=== PATIENT | male | born 1980 | race American Indian/Alaskan Native ===

== ENCOUNTER 2017-10-12 22:49 | Emergency (ER) | payer MEDICAID ==
[2017-10-12 23:24] VITALS: BP 145/86; PULSE 90; RESP 20; TEMP 98.8; O2SAT 97
[2017-10-12] MEDS ORDERED: cefTRIAXone (Rocephin) 250 mg Inj IM STA (23:59)
--- NOTE | 2017-10-13 00:31 | C.PDOC ---
History Of Present Illness 37 year old male presents to the ER with a complaint of penile discharge and dysuria. Patient states his partner recently told him she tested positive for trichomonas which prompted him to get evaluated. Denies penile lesions or abdominal pain. Time Seen by Provider: 10/12/17 23:29 Chief Complaint (Nursing): Medical Clearance History Per: Patient History/Exam Limitations: no limitations Onset/Duration Of Symptoms: Days Current Symptoms Are (Timing): Still Present Recent travel outside of the [place]: No Past Medical History Reviewed: Historical Data, Nursing Documentation, Vital Signs Vital Signs: Last Vital Signs Temp 98.8 F 10/12/17 23:21 Pulse 90 10/12/17 23:21 Resp 20 10/12/17 23:21 BP 145/86 10/12/17 23:21 Pulse Ox 97 10/13/17 02:34 Family History: States: Unknown Family Hx - Social History Hx Alcohol Use: Yes Hx Substance Use: No - Immunization History Hx Tetanus Toxoid Vaccination: No Hx Influenza Vaccination: No Hx Pneumococcal Vaccination: No Review Of Systems Constitutional: Negative for: Fever, Chills Gastrointestinal: Negative for: Abdominal Pain Genitourinary: Positive for: Dysuria, Penile Discharge. Negative for: Penile Pain, Other (Penile lesions) Physical Exam - Physical Exam Appears: Non-toxic, No Acute Distress Skin: Normal Color, Warm, Dry Head: Atraumatic, Normacephalic Eye(s): bilateral: Normal Inspection Oral Mucosa: Moist Chest: Symmetrical, No Tenderness Cardiovascular: Rhythm Regular Respiratory: Normal Breath Sounds, No Rales, No Rhonchi, No Wheezing Gastrointestinal/Abdominal: Soft, No Tenderness Male Genital: Other (Refused genital exam) Neurological/Psych: Oriented x3, Normal Speech ED Course And Treatment O2 Sat by Pulse Oximetry: 97 (Room air) Pulse Ox Interpretation: Normal Progress Note: UA and gc/chlamydia sent. Patient started on zithromax and rocephin and advised to follow up with PMD or local STD clinic for further STD screening and treatment. 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 - Scribe Statement The provider has reviewed the documentation as recorded by the Scribe Matt Walsh All medical record entries made by the Belindaibe were at my direction and personally dictated by me. I have reviewed the chart and agree that the record accurately reflects my personal performance of the history, physical exam, medical decision making, and the department course for this patient. I have also personally directed, reviewed, and agree with the discharge instructions and disposition.
[2017-10-13 00:48] LABS: SQUAMOUS EPITHIAL 1 /hpf (0-5); URINE BILIRUBIN NEGATIVE (NEGATIVE); URINE BLOOD NEGATIVE (NEGATIVE); URINE CLARITY Clear (Clear); URINE COLOR Yellow (YELLOW); URINE GLUCOSE (UA) NORMAL (Normal); URINE LEUKOCYTE ESTERASE 1+ Leu/uL (Negative); URINE NITRATE NEGATIVE (NEGATIVE); URINE PROTEIN NEGATIVE (NEGATIVE)
== END 2017-10-13 00:44 | disposition home or self-care (01) ==
LOC: C.ER 22:49
DX: Z20.2 Contact with and (suspected) exposure to infections with a predominantly sexual mode of transmission (principal)
CPT/HCPCS: 81001; 87491; 87591; 96372; 99282; J0696